=== PATIENT | male | born 1950 | race Caucasian/White ===

== ENCOUNTER → 2016-05-21 | Outpatient (CLI) | payer OTHER ==
[~2016-05-21] MED LIST: AMLO2.5T PO; AMLO5TAB2 PO; AMLO5TAB4 PO; ASPI-621 PO; ASPI-650 PO; ASPI325T4 PO; ATOR20TA9 PO; CEFD300C2 PO; CIPR500T87 PO; CLOP75TA22 PO; DOCU-30 PO; FINA1TAB16 PO; HYDR-3138 PO; HYDR-3240 PO; HYDR-3343 PO; METO25TA35 PO; METO50TA82 PO; METR500T PO; NICO1PAT4 TD; SENN1TAB7 PO; SULF1TAB24 PO; SULF1TAB3 PO
== END | disposition home or self-care (01) ==
LOC: CVU 13:25
PROVIDERS: ATTEND Surgery
DX: I74.5 Embolism and thrombosis of iliac artery (principal)
CPT/HCPCS: 93922; 93925

== ENCOUNTER → 2017-01-28 | Outpatient (CLI) | payer OTHER ==
[~2017-01-28] MED LIST changes: +ASPI325T17 PO; -ASPI325T4 PO; -CEFD300C2 PO; +CEFD300C37 PO; -CLOP75TA22 PO; +CLOP75TA52 PO; +DOCU-131 PO; -DOCU-30 PO; -HYDR-3138 PO; +HYDR-3237 PO; +NICO-486 TD; -NICO1PAT4 TD; +SULF-169 PO; -SULF1TAB3 PO
== END | disposition home or self-care (01) ==
LOC: CVU 13:02
PROVIDERS: ATTEND Surgery
DX: I65.23 Occlusion and stenosis of bilateral carotid arteries (principal); I10 Essential (primary) hypertension; E78.5 Hyperlipidemia, unspecified; I25.10 Atherosclerotic heart disease of native coronary artery without angina pectoris; I73.9 Peripheral vascular disease, unspecified; Z87.891 Personal history of nicotine dependence
CPT/HCPCS: 93880; 93922; 93925

== ENCOUNTER 2017-03-06 05:56 | Emergency (ER) | payer OTHER ==
[~2017-03-06] VITALS: Ht 172.7 cm; Wt 85.3 kg
[2017-03-06 05:57] VITALS: BP 137/79
== END 2017-03-06 09:17 | disposition home or self-care (01) ==
LOC: ED 08:31
DX: S32.011A Stable burst fracture of first lumbar vertebra, initial encounter for closed fracture (principal); F17.200 Nicotine dependence, unspecified, uncomplicated; W01.0XXA Fall on same level from slipping, tripping and stumbling without subsequent striking against object, initial encounter; Y93.89 Activity, other specified; Y92.512 Supermarket, store or market as the place of occurrence of the external cause; Y99.8 Other external cause status
CPT/HCPCS: 72110; 72131; 99284

== ENCOUNTER → 2017-04-30 | Outpatient (CLI) | payer OTHER ==
[~2017-04-30] MED LIST changes: +REGADENOSON 0.4 MG/5 ML SYRINGE ONE
== END | disposition home or self-care (01) ==
LOC: RAD 11:52
PROVIDERS: ATTEND Internal Medicine Cardiovascular Disease
DX: I44.0 Atrioventricular block, first degree (principal); I45.10 Unspecified right bundle-branch block; I25.10 Atherosclerotic heart disease of native coronary artery without angina pectoris; I10 Essential (primary) hypertension; I51.7 Cardiomegaly; Z95.5 Presence of coronary angioplasty implant and graft
CPT/HCPCS: 78452; 93017; A9502; J2785; 93306

== ENCOUNTER 2017-06-11 06:21 | Day surgery (SDC) | payer OTHER ==
[2017-06-10 12:11] VITALS: BP 140/89
[2017-06-10 12:30] LABS: BASOPHILS # (AUTO) 0.04 x10^3/uL (0-0.1); BASOPHILS % (AUTO) 0 % (0-1); EOSINOPHILS # (AUTO) 0.11 x10^3/uL (0-0.4); EOSINOPHILS % (AUTO) 1 % (1-7); LYMPHOCYTES # (AUTO) 1.95 x10^3/uL (1-3.4); LYMPHOCYTES % (AUTO) 20 % (22-44); MD NO; MEAN CORPUSCULAR HGB CONC 32.9 g/dL (33.2-36.2); MEAN CORPUSCULAR VOLUME 94.1 fL (81-97); MEAN PLATELET VOLUME 8.3 fL (7.4-10.4); MONOCYTES # (AUTO) 0.82 x10^3/uL (0.2-0.8); MONOCYTES % (AUTO) 9 % (2-9); NEUTROPHILS # (AUTO) 6.76 x10^3/uL (1.8-6.8); NEUTROPHILS % (AUTO) 70 % (42-75); PLATELET COUNT 243 x10^3/uL (130-400); RED BLOOD COUNT 6.02 x10^6/uL (4.38-5.82); RED CELL DISTRIBUTION WIDTH 14.1 % (9.4-14.8)
[2017-06-10 12:38] LABS: ALANINE AMINOTRANSFERASE 26 U/L (12-78); ALBUMIN 3.6 g/dL (3.4-5.0); ANION GAP 7 mmol/L (5-15); CALCIUM 8.5 mg/dL (8.5-10.1); CHLORIDE 109 mmol/L (98-107); CHOLESTEROL, TOTAL 78 mg/dL (140-239); CREATININE 1.44 mg/dL (0.7-1.3)
[2017-06-10 12:40] LABS: ALKALINE PHOSPHATASE 90 U/L (45-117); BILIRUBIN,TOTAL 0.7 mg/dL (0.2-1.0); CHOL/HDL RATIO 2.1; HDL CHOL % 49 % (26-37); HDL CHOLESTEROL (DIRECT) 38 mg/dL (40-60); LDL CHOLESTEROL,CALCULATED 26 mg/dL (54-169); LDL/HDL RATIO 0.7 (0.5-3.0); TOTAL PROTEIN 7.7 g/dL (6.4-8.2); TRIGLYCERIDES 69 mg/dL (50-200); VLDL CHOLESTEROL 14 mg/dL (0-25)
[~2017-06-11] VITALS: Ht 172.7 cm; Wt 84.5 kg
[~2017-06-11 06:21] MED LIST changes: +AMLO10TA2 PO; +ATOR40TA PO; -REGADENOSON 0.4 MG/5 ML SYRINGE ONE
[2017-06-11] MEDS ORDERED: SODIUM CHLORIDE 0.9% 1,000 ML IV SCH (06:32)
[2017-06-11] MEDS ORDERED: MIDAZOLAM 1 MG/ML, 2ML ONE (07:54)
[2017-06-11] MEDS ORDERED: FENTANYL PF 250 MCG/5ML ONE (07:55)
[2017-06-11] MEDS ORDERED: ONDANSETRON 2MG/ML, 2ML ONE (08:06)
[2017-06-11] MEDS ORDERED: PHENYLEPHRINE 10 MG/ML ONE (08:06)
[2017-06-11] MEDS ORDERED: PROPOFOL 10 MG/ML, 20ML ONE (08:06)
[2017-06-11] MEDS ORDERED: ROCURONIUM 10 MG/ML,10ML ONE (08:06)
[2017-06-11] MEDS ORDERED: SUCCINYLCHOLINE 20 MG/ML, 10ML ONE (08:06)
[2017-06-11] MEDS ORDERED: ADENOSINE 6 MG/2 ML ONE (08:14)
[2017-06-11] MEDS ORDERED: ISOPROTERENOL 0.2MG/ML, 5ML ONE (08:14)
[2017-06-11] MEDS ORDERED: LIDOCAINE 2%, 10ML ONE (08:14)
[2017-06-11] MEDS ORDERED: ACETAMINOPHEN 325 MG TABLET PO PRN ×2 (10:00)
[2017-06-11] MEDS ORDERED: ALBUTEROL SULFATE 2.5 MG/3 ML NPPB PRN (10:00)
[2017-06-11] MEDS ORDERED: FENTANYL PF 100 MCG/2ML IV PRN (10:00)
[2017-06-11] MEDS ORDERED: PROMETHAZINE 12.5 MG SUPP PR PRN (10:00)
[2017-06-11] MEDS ORDERED: MIDAZOLAM 1 MG/ML, 2ML IV PRN (10:00)
[2017-06-11] MEDS ORDERED: OXYcodone 5 MG/5 ML ORAL.SOL UDC PO PRN (10:00)
[2017-06-11] MEDS ORDERED: EPHEDRINE 50 MG/ML, 1ML IVPush PRN (10:00)
[2017-06-11] MEDS ORDERED: morphine SULFATE 10 MG/ML, 1ML IV PRN (10:00)
[2017-06-11] MEDS ORDERED: PROMETHAZINE 25 MG/ML, 1ML IV PRN (10:00)
[2017-06-11] MEDS ORDERED: LORazepam 2 MG/ML, 1ML IVPush PRN (10:00)
[2017-06-11] MEDS ORDERED: ONDANSETRON 2MG/ML, 2ML IVPush PRN ×2 (10:00)
[2017-06-11] MEDS ORDERED: LABETALOL 5MG/ML, 20ML IV PRN (10:00)
[2017-06-11] MEDS ORDERED: ATORVASTATIN 40 MG TABLET PO SCH (21:00)
[2017-06-11] MEDS ORDERED: METOPROLOL TARTRATE 50 MG TABLET PO SCH (21:00)
[2017-06-12] MEDS ORDERED: CLOPIDOGREL 75 MG TABLET PO SCH (09:00)
[2017-06-12] MEDS ORDERED: ASPIRIN 81 MG TABLET EC PO SCH (09:00)
[2017-06-12] MEDS ORDERED: TEMPLATE NON-FORMULARY MED. (Amlodipine Besylate (Amlodipine Besylate**) 10 MG) PO SCH (09:00)
== END 2017-06-11 14:13 ==
LOC: CACL 06:21
PROVIDERS: ATTEND Internal Medicine Cardiovascular Disease
DX: I47.1 Supraventricular tachycardia (principal); I10 Essential (primary) hypertension; E78.5 Hyperlipidemia, unspecified; I25.10 Atherosclerotic heart disease of native coronary artery without angina pectoris; Z79.82 Long term (current) use of aspirin
CPT/HCPCS: 36415; 71046; 80053; 80061; 85025; 93613; 93621; 93623; 93653; C1730; C1894; C2630; J0330; J2250; J2370; J2405; J2704; J3010; J3490; J0153

== ENCOUNTER → 2017-10-03 | Outpatient (CLI) | payer OTHER | END | disposition home or self-care (01) | LOC: CVU 06:41 | PROVIDERS: ATTEND Surgery | DX: I70.203 Unspecified atherosclerosis of native arteries of extremities, bilateral legs (principal); I70.0 Atherosclerosis of aorta; I65.23 Occlusion and stenosis of bilateral carotid arteries; I10 Essential (primary) hypertension; E78.00 Pure hypercholesterolemia, unspecified; I25.10 Atherosclerotic heart disease of native coronary artery without angina pectoris; Z87.891 Personal history of nicotine dependence; Z86.73 Personal history of transient ischemic attack (TIA), and cerebral infarction without residual deficits | CPT/HCPCS: 93880; 93922; 93925; 93978 ==